=== PATIENT | female | born 1950 | race Caucasian/White ===

== ENCOUNTER 2022-10-17 19:08 | Observation (INO) | payer MEDICARE, SELFPAY ==
--- NOTE | 2022-10-10 13:35 | PC.NURSE ---
Report to the Outpatient Waiting Room, entrance under the green pavilion located off [facility], at time _0600 on date __10/16/22 . Planned Procedure Time: __0800 . Time changes happen often and if your time is changed the preop area will call you the afternoon before. - You and your visitor will be asked to self-screen and do not enter if you have any COVID symptoms. - A mask is optional within the hospital at this time. Patients may have clear liquids (water, carbonated beverages, clear teas, apple juice) until 3 hours prior to surgery with a maximum of 20 ounces. - No food from midnight until time of surgery - Infants may have breast milk until 4 hours before surgery, infant formula 6 hours prior to surgery. - Children will be allowed to drink immediately following surgery. If applicable, please bring a bottle or sippy cup to assist with drinking. Juice, water, soda, and popsicles are readily available. For infants on formula, please bring formula the day of surgery. Pacifiers are allowed. Take the following medications with a SIP of water the morning of surgery: ____DULOXETINE,GABAPENTIN,HYDROCODONE IF NEEDED FOR PAIN DO NOT STOP ANY OF YOUR OTHER PRESCRIPTION MEDICATIONS PRIOR TO SURGERY ?EXCEPT THE FOLLOWING Medications to discontinue per physician ALL VITAMINS/SUPPLEMENTS 3 DAYS PRE OP.LAST DOSE 10/12/22__. ASPIRIN PER DR MILLS Please no make-up, nail lithuanian, hairspray, perfume, deodorant, or body powder the day of surgery. No jewelry (including any body piercings) or valuables the day of surgery, leave them at home. Please take a shower or bath the night before, or the morning of, surgery with an antibacterial soap. Wear comfortable, loose fitting clothing. Children are encouraged to wear pajamas. - Jewelry must be removed prior to entering the operating room. Rings and piercings that are not removed may be cut off. - The hospital will not accept responsibility for valuables. - Please leave all valuables, including medications, at home the day of surgery. If you are going home after surgery, a licensed jinrikisha driver must drive you home. - NO public transportation without another adult if you receive anesthesia. - We recommend that an adult stay with you for 24 hours following discharge. - We also recommend that you do not drive, make important decision, drink alcoholic beverages, or take any drugs that were not prescribed by your health care provider for at least 24 hours after your discharge time. For Pediatric surgeries, we recommend two adults accompany the child home. Follow any additional instructions given to you from your surgeon. If you or anyone in your household have experienced Covid symptoms in the past week, please notify your surgeon or the nurse liaison at the phone number below for possible testing. Telephone instructions given to _PATIENT and asked if any additional questions and then verbalized understanding. Patient advised to call surgeon office or pre surgery nurse liaison [phone] if any additional questions.
[2022-10-10 13:49] VITALS: BMI 44.8
[2022-10-16] VITALS (16 sets, daily range): BP systolic 98–164; BP diastolic 59–98; PULSE 65–79; RESP 14–20; TEMP 36.2–36.8; O2SAT 91–99; BMI 42.4
--- NOTE | 2022-10-16 06:46 | WPDANESEPPF ---
Anes - Initial Pre Proc Eval Procedure: Operation Date: 10/16/22 08:00 Proposed Procedures p L2-3 Lumbar Microdiscectomy - Akil Larsen MD Date/Time: 10/16/22 06:46 Surgeon: Akil Larsen MD Pre Op Diagnosis: left L2-3 herniated nucleous pulposus Patient Data Age: 72 Gender: F Height: 1.57 m Weight: 111.13 kg Allergies Allergy/AdvReac Type Severity Reaction Status Date / Time No Known Allergies Allergy Verified 10/10/22 13:07 Home Medications Medication Instructions Recorded Confirmed Type cholecalciferol (vitamin D3) 25 25 mcg PO DAILY 04/28/22 10/10/22 History mcg (1,000 unit) capsule furosemide 40 mg tablet 40 mg PO QAM 04/28/22 10/10/22 History aspirin 81 mg tablet,delayed 81 mg PO HS 10/10/22 10/10/22 History release (Adult Low Dose Aspirin) benazepril 20 mg tablet 20 mg PO BID 10/10/22 10/10/22 History calcium carbonate 500 mg-vitamin 1 tablet PO DAILY 10/10/22 10/10/22 History D3 3.125 mcg (125 unit) tablet diphenhydramine HCl 50 mg capsule 50 mg PO HS PRN Insomnia 10/10/22 10/10/22 History duloxetine 30 mg capsule,delayed 30 mg PO BID 10/10/22 10/10/22 History release gabapentin 100 mg capsule 100 mg PO TID 10/10/22 10/10/22 History hydrocodone 5 mg-acetaminophen 325 1 tablet PO TID PRN Pain 10/10/22 10/10/22 History mg tablet melatonin 10 mg tablet 10 mg PO HS PRN INSOMINA 10/10/22 10/10/22 History multivitamin (Daily Multi-Vitamin 1 tablet PO DAILY 10/10/22 10/10/22 History tablet) pramipexole 1 mg tablet 1 mg PO TID 10/10/22 10/10/22 History Patient hx anesthesia problems: none Family hx anesthesia problems: none Results Review: All pre-operative results and documents have been reviewed as part of the pre-operative evaluation. [facility] Past Medical History Medical History (Updated 10/16/22 @ 06:46 by Ted Darby MD) Anxiety Chronic back pain Chronic kidney disease Hypertension Morbid obesity ANDREW (obstructive sleep apnea) Spinal stenosis Surgical History Surgical History H/O gastric sleeve H/O Spinal surgery H/O tubal ligation Family History Family History Other Heart disease Hypertension Social History Social History Smoking status: Never smoker Alcohol intake: never Substance use: never Substance use type: does not use Lack of Transportation: No Lack of Food: Never True Current Housing: Decline to Answer Concerned About Future Housing: Decline to Answer Difficulty Paying Gas/Electric Bills: Decline to Answer Difficulty Paying for Meds: Decline to Answer Currently Unemployed: Decline to Answer Education: Decline to Answer Difficulty w/ Childcare or Family Care: Decline to Answer Living arrangements: with family Occupation/Education: occupation Spiritual care concerns: No Anes - Eval Final PreProcedure Day of Procedure 10/16/22 06:46 Patient weight: morbidly obese Heart: regular rate and rhythm Lungs: clear to auscultation Airway: Mallampati scale class II Neurological: alert and oriented Last oral intake: >/= 8 hours ASA classification: IV Emergent: no Anesthetic plan: proceed Anesthesia type and monitoring: general ETT and standard monitoring Results Review: All pre-operative results and documents have been reviewed as part of the pre-operative evaluation. Informed Consent: The patient's anesthetic plan and its attendant risks and benefits were discussed with the patient/family/POA. Questions were solicited and answers provided to the satisfaction of the patient/family/POA.
[2022-10-16] MEDS: LACTATED RINGERS 1,000 ML 30 ML IV CONT ×2 (07:35→10:38)
--- NOTE | 2022-10-16 08:10 | SUR.PREOP ---
0810- Dr. Larsen made aware of patient's wounds. Left thigh wound open to air and wounds noted to bilateral lower legs, left lower leg with open wound. Per Dr. Larsen OK to proceed with surgery after assessing wounds. MAMADOU Hernandez confirmed with MD they will dress left thigh wound prior to positioning in the OR.
--- NOTE | 2022-10-16 08:15 | PM.IMHP ---
H&P: HPI History of Present Illness Date/Time: 10/16/22 08:15 Chief Complaint: Back and leg pain Narrative: Latisha is a 72-year-old female who underwent L2-4 laminectomy and at some point after that herniated disc at L2-3 with rostral migration causing pain in her back and lower extremities and presents now for removal of that disc from the left-sided approach. She has not changed appreciably since we last saw her. She is not having any New bowel or bladder difficulty or new issues in her lower extremities. Review of Systems Review of Systems: the patient has an open sore on her right thigh in on her left roach. She denies shortness of breath, cough, fever, chills, nausea, vomiting, weight loss, weight gain, chest pain, dysuria. [facility] Past Medical History Medical History Anxiety Chronic back pain Chronic kidney disease Hypertension Morbid obesity ANDREW (obstructive sleep apnea) Spinal stenosis Surgical History Surgical History H/O gastric sleeve H/O Spinal surgery H/O tubal ligation Family History Family History Other Heart disease Hypertension Social History Social History Smoking status: Never smoker Alcohol intake: never Substance use: never Substance use type: does not use Lack of Transportation: No Lack of Food: Never True Current Housing: Decline to Answer Concerned About Future Housing: Decline to Answer Difficulty Paying Gas/Electric Bills: Decline to Answer Difficulty Paying for Meds: Decline to Answer Currently Unemployed: Decline to Answer Education: Decline to Answer Difficulty w/ Childcare or Family Care: Decline to Answer Living arrangements: with family Occupation/Education: occupation Spiritual care concerns: No Meds Home Medications and Allergies Home Medications Medication Instructions Recorded Confirmed Type cholecalciferol (vitamin D3) 25 25 mcg PO DAILY 04/28/22 10/10/22 History mcg (1,000 unit) capsule furosemide 40 mg tablet 40 mg PO QAM 04/28/22 10/10/22 History aspirin 81 mg tablet,delayed 81 mg PO HS 10/10/22 10/10/22 History release (Adult Low Dose Aspirin) benazepril 20 mg tablet 20 mg PO BID 10/10/22 10/10/22 History calcium carbonate 500 mg-vitamin 1 tablet PO DAILY 10/10/22 10/10/22 History D3 3.125 mcg (125 unit) tablet diphenhydramine HCl 50 mg capsule 50 mg PO HS PRN Insomnia 10/10/22 10/10/22 History duloxetine 30 mg capsule,delayed 30 mg PO BID 10/10/22 10/10/22 History release gabapentin 100 mg capsule 100 mg PO TID 10/10/22 10/10/22 History hydrocodone 5 mg-acetaminophen 325 1 tablet PO TID PRN Pain 10/10/22 10/10/22 History mg tablet melatonin 10 mg tablet 10 mg PO HS PRN INSOMINA 10/10/22 10/10/22 History multivitamin (Daily Multi-Vitamin 1 tablet PO DAILY 10/10/22 10/10/22 History tablet) pramipexole 1 mg tablet 1 mg PO TID 10/10/22 10/10/22 History Allergies Allergy/AdvReac Type Severity Reaction Status Date / Time No Known Allergies Allergy Verified 10/16/22 07:46 Exam Narrative: General: Yes oriented to person, Yes oriented to place, Yes oriented to time, Yes normal cognition and Yes no meningeal signs Cranial Nerves: Yes CN's II-XII intact bilaterally Speech: normal speech Coordination/Balance: [id number] test normal Pupils: bilateral: Regular round pupils laterality and bilateral: Reactive pupils laterality Other: Strength is decreased in the hip flexors bilaterally.? She is able to lift them against gravity and resist slightly.? Strength is slightly diffusely decreased in all muscle groups but is symmetrical.? Sensation was intact to light touch throughout the lower extremities.? Deep tendon reflexes were difficult to elicit the knees or ankles bilaterally
[2022-10-16] MEDS: ceFAZolin 2 GM/D5W 50 ML 2 GM/50 ML BAG IVPB (08:17)
--- NOTE | 2022-10-16 08:44 | WPDHPUPDATE1 ---
History and Physical Update Update Date/Time: 10/16/22 08:44 History and Physical has been reviewed, including an updated exam of the patient. There are NO changes in the patient's condition. Risks, benefits, and alternatives have been discussed and questions answered. Patient agrees to proceed with procedure.
[2022-10-16] MEDS: LIDO 1%/EPINEPHRINE/PF 1:200,000 30 ML VIAL 10 ML XX (08:58)
--- NOTE | 2022-10-16 10:12 | P.OP_ITS ---
Procedure Note - Detailed Date of Procedure 10/16/22 Pre-op Diagnosis left L2-3 herniated nucleous pulposus Post-op Diagnosis Same Procedure Performed Left redo L2-3 hemilaminectomy for epidural mass, likely calcified herniated disc Surgeon Akil Larsen MD Anesthesia General Description of Procedure The patient was brought to the operating room in supine position, was sedated, intubated placed under general anesthesia in routine fashion. The area of operation her back was examined, marked for incision, prepped and draped in routine sterile fashion. Incision was marked over the L1 through 3 spinous processes in the midline. This area was injected with 0.5% lidocaine with [id number] epinephrine. Intravenous antibiotics given prior to incision. Incision was made with a 10 blade scalpel down to the lumbodorsal fascia. A subperiosteal dissection muscle soft tissue away from spinous process and lamina at L1 was performed with a subperiosteal elevator and Bovie cautery. A verifying x-rays obtained to verify the level of operation. Localization was quite difficult given the poor bone quality and the deformity. Using the CT scan to help interpret the x-ray determined that we were below the L1 lamina at the L2 pedicle with the marker. Midas-Kei drill was used to perform a limited hemilaminectomy at L1 so that the normal epidural space could be identified. This was then followed inferiorly. There was significant and very tough scar adherent to all the spinal structures. The bone quality was found to be poor and there was some shakiness of the facet at L2-3. Attempts were made to drill down the medial facet into the epidural space. Dense scar was discovered in the epidural space and there was no clear demarcation between dura, scar and mass. Several attempts were made to find the edges of the mass superiorly. These failed. Given all of the above factors, the poor bone quality, the lack of support structure in the spine and the danger of injuring nerves medially by either cutting into the scar or dura or pulling against them it was decided that it was not safe to proceed any further then the bony decompression that had already been done. The wound was then copiously irrigated with bacitracin irrigation all bleeding was stopped with bipolar and Bovie cautery and Gelfoam thrombin powder. The wound was then closed in layered fashion with 2-0 Vicryl interrupted sutures in the lumbodorsal fascia and Sameera's layer. 3-0 Vicryl buried interrupted sutures were placed in the dermis and the skin was closed with a running 4-0 Monocryl subcuticular stitch and dressed with Dermabond. The patient was then allowed to wake up in the operating room and was taken to the recovery room in stable condition. There were no immediate complications of this operation. All counts were reported correct in the case. Blood loss was 50 cc. The patient was neurologically at her baseline postoperatively. Estimated Blood Loss 50 IV Fluids 1,000 Complications None Condition Stable Disposition PACU [facility] Billing Surgery - Charge Forward: Surgery Billing
--- NOTE | 2022-10-16 12:50 | ADMGEN ---
This patient, Latisha Finn, was admitted to Medical Room 348-01. Patient/family oriented to hospital policies and general routines including ID bracelet, bed and alarms, visiting hours, pain management, procedures, bathroom and other care routines, personal items, smoking policy, room service/diet, and visiting hours. Information on how to activate the Rapid Response Team has been discussed. Patient/Family are encouraged to report perceived risks to care and to ask questions if they do not understand what they are told or what they should do.
[2022-10-16] MEDS: KCL 20 MEQ/D5/0.45% SOD CHL 1,000 ML 80 ML IV CONT (13:00)
[2022-10-16] MEDS: GABAPENTIN 100 MG CAPSULE PO ×2 (13:40→17:24)
[2022-10-16] MEDS: PRAMIPEXOLE 1 MG TABLET PO ×2 (13:40→17:24)
[2022-10-16] MEDS: SILVERGEL (ELTA) 45 ML 1 APPLIC TOPICAL (14:49)
[2022-10-16] MEDS: HYDROcodone/acetaminophen (*CRX) 5-325 MG TABLET 1 TAB PO (17:29)
[2022-10-16] MEDS: lisinopriL 20 MG TABLET PO (20:24)
[2022-10-16] MEDS: DULoxetine HCL 30 MG CAPSULE.DR PO (20:25)
[2022-10-16] MEDS: MELATONIN 5 MG TABLET 10 MG PO (20:28)
[2022-10-16] MEDS: diphenhydrAMINE HCl CAP 25 MG CAPSULE 50 MG PO (20:28)
[2022-10-16] MEDS: HYDROcodone/acetaminophen (*CRX) 10-325 MG TABLET 1 TAB PO (21:51)
--- NOTE | ~2022-10-17 | XR_ITS ---
XR fluoroscopy no charge Indication: Lumbar microdiscectomy at L2-3. TECHNIQUE: Fluoroscopy used during Lumbar microdiscectomy at L2-3. performed by [Akil ronquillo MD] on 10/16/2022. 7 seconds of fluoroscopy. with 3 fluoroscopic images images captured. FINDINGS: Correlate with procedure note. IMPRESSION: Fluoroscopy used during Lumbar microdiscectomy at L2-3.. Correlate with procedure note. Reviewed, dictated and finalized at location L.
[2022-10-17 05:17] VITALS: BP 134/75; PULSE 63; RESP 16; TEMP 36.5; O2SAT 94
[2022-10-17 09:20] VITALS: PULSE 65; RESP 16; O2SAT 96
[2022-10-17] MEDS: DOCUSATE SODIUM 100 MG CAPSULE PO (09:23)
[2022-10-17] MEDS: DULoxetine HCL 30 MG CAPSULE.DR PO (09:23)
[2022-10-17] MEDS: PRAMIPEXOLE 1 MG TABLET PO ×3 (09:23→16:34)
[2022-10-17] MEDS: GABAPENTIN 100 MG CAPSULE PO ×3 (09:23→16:34)
[2022-10-17] MEDS: CHOLECALCIFEROL 1,000 UNITS TABLET 1000 UNITS PO (09:24)
[2022-10-17] MEDS: lisinopriL 20 MG TABLET PO (09:25)
[2022-10-17] MEDS: MULTIVITAMINS THERAPEUTIC TAB (*BKC) 1 TABLET PO (09:25)
[2022-10-17] MEDS: FUROSEMIDE 40 MG TABLET PO (09:25)
[2022-10-17] MEDS: SILVERGEL (ELTA) 45 ML 1 APPLIC TOPICAL (09:26)
--- NOTE | 2022-10-17 10:58 | WPDANESPN ---
Anes - Prog Note Post-Op Date/Time: 10/17/22 10:58 Cardiovascular status: normal Respiratory status: normal Airway patency: baseline Mental status: baseline Post-Op hydration status: normal Vital Signs: Last Vital Signs Temp 36.5 C 10/17/22 05:17 Pulse 63 10/17/22 05:17 Resp 16 10/17/22 05:17 BP 134/75 10/17/22 05:17 Pulse Ox 94 10/17/22 05:17 O2 Del Method Room Air 10/16/22 20:00 O2 Flow Rate 1 10/16/22 12:20 Pain Score (VAS): 0 I/O: Intake & Output 10/16/22 10/17/22 10/17/22 23:59 07:59 15:59 Intake Total 240 300 440 Balance 240 300 440 Post-procedural complaints: none Patient Feedback: Patient satisfied with anesthetic care.
[2022-10-17 11:24] VITALS: BP 129/74; PULSE 65; RESP 16; TEMP 36.1; O2SAT 96
[2022-10-17 15:24] VITALS: BP 121/81; PULSE 66; RESP 16; TEMP 37.1; O2SAT 93
[2022-10-17] MEDS: HYDROcodone/acetaminophen (*CRX) 10-325 MG TABLET 1 TAB PO (16:36)
--- NOTE | 2022-10-30 07:41 | PM.DS ---
DS: Admitting Diagnosis Discharge Date 10/17/22 Admitting Diagnosis Herniated nucleus pulposus, L2-3 DS: Discharge Diagnosis Discharge Diagnosis Plan Same DS: Summary Hospital Course Hospital Course: Patient will to the operating room on 10/16/2022 with the aforementioned left L2-3 microscopic lumbar diskectomy was performed without complication. The patient went to the for postop bleed. By postoperative day 1 she was eating, ambulating emptying her bladder pain was under control by mouth pain medicine. Wound remained clean dry and intact. She was afebrile stable vital signs. She was therefore allowed to be discharged home. Time Spent with Patient Time attestation: Total time spent providing and/or coordinating discharge services: Discharge Plan Discharge Attending physician on discharge: Akil Larsen Consulting providers: Jaleesa Carbone; Deuce Trujillo; Ted Darby Discharging Clinician: Akil Larsen Anticipated Discharge Date/Time: 10/17/22 20:04 Patient Disposition: Home, Self-Care Activity: may shower Diet: as tolerated Discharge Instructions: Wound Care instructions for left thigh and right lower leg. 1. wash the wounds every day with a gentle soap and water. 2. Apply Silver gel to all wounds. 3. Cover with a vasoline gauze 4. Cover with a dry 4x4 gauze pad 5. tape in place. Wounds should be covered at all times. To help reduce and control swelling in legs, it is important to elevate legs when sitting, avoid salt in diet and to wear compression stockings. INSTRUCTIONS AFTER YOUR LUMBAR LAMINECTOMY/DECOMPRESSION/FORAMINOTOMY/DISCECTOMY Incisions may be closed with either: Steri-strips (let them wear off on their own). Surgical glue (let it peel off on its own). Sutures or kirsten (call the office for an appointment to have these removed). Keep the incision dry for the first three days after surgery. Never apply ointments or lotions to the incision. The incision should be checked daily. Notify the office if there is drainage, redness, or if you have fever with a temperature of over 100 degrees. After the third postop day, it is okay to shower. Let soap and water run over your incision. No soaking in a tub, hot tub, or pool for at least one month. You are encouraged to walk as much as comfortable, with assistance as needed. For example, it may be beneficial to walk short distances hourly during the waking hours and gradually increase walking during your recovery period. Fatigue can be common. Avoid any bending, heavy lifting, twisting movements. You have an [id number]-pound lift restriction until further advised by your physician (A gallon of milk weighs eight pounds). Make frequent position changes, avoiding long periods of sitting. Try not to sit more than 30 minutes at a time. You may engage in sexual activity in two weeks as tolerated. No housework, especially vacuuming, making beds, or doing laundry until seen in the office. You may walk stairs carefully. Minimize car rides for two weeks. Driving can usually be resumed within two weeks; however, you may not drive at that time if still taking pain medications. Once you are discharged from the hospital, please call the office to set up your postop appointment. The physician may order pain medication and/or muscle relaxers. As time goes by, you should require less of these. Always take your medication as ordered, and only if needed. If you take more than prescribed, it will not be refilled early. If you feel you require narcotic medication refill, kindly give the office a 72-hour notice. No refills are given over the weekend. Anti-inflammatory meds (like Ibuprofen, Aleve, Advil, Motrin) may be used if approved by your surgeon. Over the counter Tylenol products may be used but use caution mixing Tylenol with your pain medication. The common pain pills include Acetaminophen as an ingredient, you could cause liver damage if lele
== END 2022-10-17 20:36 | disposition home or self-care (01) ==
LOC: ANHSURGERY 19:15 → ANH3MED 19:16
PROVIDERS: Admitting Provider Neurological Surgery; Visit Provider Neurological Surgery
PROC: (CPT 63030; principal; 2022-10-16 08:00)
DX: M51.26 Other intervertebral disc displacement, lumbar region (principal); M47.816 Spondylosis without myelopathy or radiculopathy, lumbar region; M41.9 Scoliosis, unspecified; F41.9 Anxiety disorder, unspecified; G89.29 Other chronic pain; M54.9 Dorsalgia, unspecified; I12.9 Hypertensive chronic kidney disease with stage 1 through stage 4 chronic kidney disease, or unspecified chronic kidney disease; N18.9 Chronic kidney disease, unspecified; E66.01 Morbid (severe) obesity due to excess calories; Z68.41 Body mass index [BMI] 40.0-44.9, adult; G47.33 Obstructive sleep apnea (adult) (pediatric); M48.00 Spinal stenosis, site unspecified; Z79.82 Long term (current) use of aspirin; Z79.891 Long term (current) use of opiate analgesic; Z79.899 Other long term (current) drug therapy
CPT/HCPCS: 63030; 36415; 86850; 86900; 86901; 97110; 97161; 97165; 97530; 97535; 99199; A9270; G0378; J0690; J1100; J1170; J2250; J2370; J2405; J2704; J3010; J3480; J7120